=== PATIENT | female | born 1960 | race Caucasian/White ===

== ENCOUNTER 2017-10-01 12:35 | Outpatient (CLI) | payer BC ==
--- NOTE | 2017-10-01 16:04 | MRI ---
MRI RIGHT KNEE WITHOUT CONTRAST: HISTORY: M25.561 (knee pain). COMPARISON: Knee radiographs from 2016. FINDINGS: MEDIAL MENISCUS: High-grade radial oblique flap tear, posterior horn, medial meniscus, extending fro m the free edge to the intermediate zone and directed medially, near the root attachment. LATERAL MENISCUS: Intact. ACL/PCL/MCL/LCL: Intact. EXTENSOR MECHANISM: The quadriceps tendon, the patella, and the patella tendon are all intact. CARTILAGE: PATELLOFEMORAL COMPARTMENT: There are some high-grade cartilage fissures on the lateral trochlea. MEDIAL COMPARTMENT: High-grade cartilage fissuring along the central weight-bearing surface, medial femoral condyle, medial tibial plateau. LATERAL COMPARTMENT: Mild chondral fraying. SOFT TISSUES: There is a ganglion pseudocyst in the posterior central soft tissues, emanating from t he posterior joint capsule, likely sequela of the meniscal tear. IMPRESSION: 1. High-grade radial oblique tear, posterior horn, medial meniscus, extending from the free edge and then extending laterally into the posterior horn/root attachment, involving the intermediate and red zone. This is not a complete tear, with only 2 mm gutter extrusion. 2. Ganglion pseudocyst along the posterior horn, medial meniscus, seen through the capsule, into the posterior soft tissues. 3. Moderate-sized osteophyte formation, medial compartment, along with multifocal grade 3 chondromal acia. 4. 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 POS: TPC
== END 2017-10-01 12:36 | disposition home or self-care (01) ==
LOC: SCSMRI 12:35
PROVIDERS: ATTEND Orthopaedic Surgery
DX: S83.241A Other tear of medial meniscus, current injury, right knee, initial encounter (principal); M67.461 Ganglion, right knee; M25.761 Osteophyte, right knee; M22.41 Chondromalacia patellae, right knee

== ENCOUNTER 2017-10-20 16:24 | Outpatient (CLI) | payer BC ==
[2017-10-20 17:12] LABS: #Basophils 0.1 thou/uL (0.0-0.2); #Eosinphils 0.1 thou/uL (0.0-0.7); #Lymphocytes 2.1 thou/uL (1.20-3.40); #Monocytes 0.7 thou/uL (0.11-0.59); #Neutrophils 3.2 thou/uL (1.40-6.50); %Basophils 1.1 % (0.0-1.0); %Eosinophils 2.3 % (0.0-10.0); %Lymphocytes 33.9 % (21.0-51.0); %Monocytes 10.8 % (0.0-10.0); %Neutrophils 51.9 % (42.0-75.0); Hemoglobin 14.4 g/dL (12.0-16.0); Mean Corpuscular HGB CONC 32.4 g/dL (32.0-36.0); Mean Corpuscular Hemoglobin 31.6 pg (27.0-31.0); Mean Corpuscular Volume 97.5 fl (81.0-99.0); Mean Platelet Volume 8.1 fL (7.4-10.4); Platelet Count 213 thou/uL (130-400); RBC Distribution Width 13.1 % (11.5-14.5); Red Blood Cell (RBC) Count 4.55 mill/uL (4.20-5.40); White Blood Cell (WBC) Count 6.2 thou/uL (4.8-10.8)
[2017-10-20 17:40] LABS: Anion Gap 12 mmol/L (10-20); BUN (Urea Nitrogen) 19 mg/dL (9.8-20.1); Calc. Creatinine Clearance 0 mL/min (70-130); Calcium 9.7 mg/dL (7.8-10.44); Carbon Dioxide 28 mmol/L (22-29); Chloride 103 mmol/L (98-107); Estimated GFR-MDRD 64; Glucose 98 mg/dL (70-105); Potassium 4.4 mmol/L (3.5-5.1); Sodium 139 mmol/L (136-145)
== END 2017-10-20 16:25 | disposition home or self-care (01) ==
LOC: LABBT 16:24
PROVIDERS: ATTEND Orthopaedic Surgery
DX: Z01.818 Encounter for other preprocedural examination (principal); S83.206A Unspecified tear of unspecified meniscus, current injury, right knee, initial encounter
CPT/HCPCS: 80048; 85025; 93005; 93010

== ENCOUNTER 2017-10-22 06:11 | Day surgery (SDC) | payer BC ==
[2017-10-20 16:43] VITALS: BMI 37.8
[2017-10-22] MEDS ORDERED: Fentanyl 100 MCG/2 ML VIAL ONE ×2 (06:35→06:38)
[2017-10-22] MEDS ORDERED: Dexamethasone 4 mg/ml Vial ONE (06:35)
[2017-10-22] MEDS ORDERED: Midazolam HCl 2 mg/2 ml Vial ONE ×2 (06:35→06:38)
[2017-10-22] MEDS ORDERED: PROPOFOL 20 ML ONE (06:37)
[2017-10-22] MEDS ORDERED: CEFAZOLIN/Water 2 GM/20 ML SYRINGE ONE (06:57)
[2017-10-22] MEDS ORDERED: Meperidine HCl/PF 25 MG/ML VIAL ONE (09:00)
[2017-10-22] MEDS ORDERED: Ondansetron HCl/PF 4 MG/2 ML Vial ONE (09:01)
--- NOTE | 2017-10-22 09:59 | OP ---
DATE OF PROCEDURE: 10/22/2017 PREOPERATIVE DIAGNOSIS: Right knee posterior horn medial meniscus tear. POSTOPERATIVE DIAGNOSES: 1. Right knee posterior horn medial meniscus tear. 2. Bony loose body at the base of the ACL measuring greater than 1 cm in diameter. PROCEDURES PERFORMED: 1. Right knee arthroscopy with partial medial meniscectomy. 2. Removal of loose body, right knee. SURGEON: Doug Porter M.D. DENTURE PACKER: None. BLOOD LOSS: Minimal. COMPLICATIONS: None. ANESTHESIA: She did have general anesthetic as well as a local knee block. DISPOSITION: She went to recovery room in stable condition. INDICATIONS: A 57-year-old active female who had a meniscus tear noted on MRI scan and we tried to t reat this nonoperatively, but unfortunately, she has failed this and at this time she is presenting f or surgery. OPERATIVE PROCEDURE: After all appropriate consent forms were explained and signed, she was taken ba to the operating room and at this time was given general anesthetic. But once anesthesia was appr opriate, the tourniquet was placed on the right thigh and leg was placed in an arthroscopic leg holde r. It was then prepped and draped in the standard surgical fashion. The limb was exsanguinated and the tourniquet was taken to 300 mmHg. An inferolateral portal was established and scope was placed i nto the knee joint. A needle localization technique was then used to make a medial working portal. Diagnostic arthroscopy commenced in the notch. The ACL and PCL probed and found to be intact. There were some large osteophytes in the notch and I did take some of this down to prevent impingement ont o the ligamentous structures. The medial compartment was evaluated. There was some grade 2 chondrom alacia in the medial femoral condyle. No significant treatment was needed. The tibia overall was in pretty good condition. There was a large tear in the posterior horn of the medial meniscus and only the portion of the meniscus that was torn was removed leaving all remaining meniscal structure. Rem aining meniscus was in good condition. As we went back into the notch, we noted a large loose body a ttached at the base of the ACL. This was removed with a grasper measuring greater than a centimeter in diameter. Once this loose body is removed, we gently debrided around this area with the shaver. We then turned our attention to the lateral compartment. Femur, tibia, and lateral meniscus were pro bed and found to be intact. Gutters were swept through and no loose bodies were noted. There were c ircumferential osteophytes noted in the medial and lateral gutters. Patellofemoral joint showed some global grade II and III changes to the patella and the trochlea. Again, no treatment was needed. A t this time, scope was removed. Knee was drained. Portals are closed with simple nylon stitch. Bul ky sterile dressing was applied and the tourniquet let down. The patient at this time was awakened. She was taken to the recovery room in stable condition. All counts were correct at the end of the c ase. She received preoperative IV antibiotics.
[2017-10-22] MEDS ORDERED: PROPOFOL 200 MG/20 ML VIAL ONE (11:12)
[2017-10-22] MEDS ORDERED: Lidocaine 1% PF 5 ML VIAL ONE (11:12)
[2017-10-22] MEDS ORDERED: Bupivacaine HCl 0.5%/Epinephrine 1:200,000/PF 30 ml Vial ONE (12:53)
== END 2017-10-22 10:40 | disposition home or self-care (01) ==
LOC: SDC 06:11
PROVIDERS: ATTEND Orthopaedic Surgery
PROC: 0SBC4ZZ Excision of Right Knee Joint, Percutaneous Endoscopic Approach (ICD-10-PCS; principal; 2017-10-22)
DX: S83.241A Other tear of medial meniscus, current injury, right knee, initial encounter (principal); M17.11 Unilateral primary osteoarthritis, right knee; I10 Essential (primary) hypertension; Z88.5 Allergy status to narcotic agent; Z79.82 Long term (current) use of aspirin; Z79.899 Other long term (current) drug therapy
CPT/HCPCS: 96374; 96375; G8978-GP-CJ; G8979-GP-CJ; G8980-GP-CJ; J0670; J1100; J2001; J2175; J2250; J2405; J2704; J3010

== ENCOUNTER 2018-10-26 13:07 | Outpatient (CLI) | payer BC ==
--- NOTE | 2018-10-26 14:09 | MRI ---
MRI Lumbar Spine Noncontrast: HISTORY: Right lower extremity pain for one month. Pain is getting worse. COMPARISON: None FINDINGS: The visualized retroperitoneal structures demonstrate a normal appearance. Conus medullaris is normal in morphology and terminates at the L1-2 level. There is a transitional vertebra at the lumbosacral junction with partial sacralization of the right aspect of the L5 vertebral body. L1-2: There is a mild disc osteophyte complex resulting in slight effacement of the ventral aspect of the thecal sac. Mild facet degenerative changes are present. The neural foramina are patent. L2-3: There is a mild broad-based disc osteophyte complex eccentrically greater on the left. There is no significant narrowing of the central spinal canal. The right neural foramen is patent. There is mild left-sided neural foraminal narrowing. L3-4: There is grade 1 anterolisthesis of L3 on L4 measuring 4 mm. A mild disc osteophyte complex is present. There are prominent facet hypertrophic changes at this level with minimal ligamentous thickening. No significant central spinal canal or neural foraminal narrowing is appreciated. L4-5: There is grade 1 anterolisthesis of L4 on L5 measuring approximately 5 mm. There is loss of int ervertebral disc height. A mild broad-based disc osteophyte complex is present. Prominent facet hypertrophic changes are noted. There is no significant narrowing of the central spinal canal or neur al foramina. L5-S1: No disc bulge or disc herniation is seen. Central spinal canal and neural foramina are patent. IMPRESSION: Multilevel degenerative changes in the lumbar spine. There is grade 1 anterolisthesis of L3 on L4 and L4 on L5 which appears to be attributable to prominent facet degenerative changes at these levels. There is no significant narrowing of the central spinal canal or neural foramina at any level of the lumbar spine.
== END 2018-10-26 13:08 | disposition home or self-care (01) ==
LOC: SCSMRI 13:07
PROVIDERS: ATTEND Orthopaedic Surgery
DX: M47.26 Other spondylosis with radiculopathy, lumbar region (principal); M79.604 Pain in right leg; M43.16 Spondylolisthesis, lumbar region
CPT/HCPCS: 72148

== ENCOUNTER 2020-10-17 09:38 | Outpatient (CLI) | payer BC | END 2020-10-17 09:39 | disposition home or self-care (01) | LOC: SCSMRI 09:38 | PROVIDERS: ATTEND Orthopaedic Surgery Hand Surgery | DX: S63.591A Other specified sprain of right wrist, initial encounter (principal) ==

== ENCOUNTER 2021-03-21 09:28 | Outpatient (CLI) | payer BC ==
[2021-03-21 10:43] LABS: Bilirubin Neg (Negative); Blood, Urine Negative (Negative); Glucose, Urine (Dipstick) Normal (Negative); Ketone, Urine Negative (Negative); Leukocyte Negative (Negative); Nitrite Negative (Negative); Protein, Urine (Dipstick) Negative (Neg-Trace); Specific Gravity, Urine 1.005 (1.002-1.036); Urobilinogen Normal mg/dL (Less than 2)
[2021-03-21 10:53] LABS: Clarity Clear (Clear)
[2021-03-21 10:55] LABS: #Basophils 0.1 10x3/uL (0.0-0.2); #Eosinphils 0.1 10x3/uL (0.0-0.5); #Monocytes 0.6 10x3/uL (0.0-1.1); #Neutrophils 2.6 10x3/uL (1.5-8.4); %Basophils 1.1 % (0.0-2.0); %Eosinophils 1.9 % (0.0-6.0); %Lymphocytes 36.1 % (18.0-47.0); %Monocytes 11.9 % (0.0-10.0); %Neutrophils 48.8 % (40.0-75.0); Mean Corpuscular HGB CONC 33.3 g/dL (32.0-36.0); Mean Corpuscular Volume 99.1 fl (81.6-98.3); Mean Platelet Volume 10.9 fl (7.4-10.4); Platelet Count 194 10x3/uL (150-450); RBC Distribution Width 13.1 % (11.5-14.5); Red Blood Cell (RBC) Count 4.55 10x6/uL (3.90-5.03); White Blood Cell (WBC) Count 5.2 10x3/uL (3.5-10.5)
[2021-03-21 11:11] LABS: Anion Gap 13 mmol/L (10-20); BUN (Urea Nitrogen) 18 mg/dL (9.8-20.1); Calc. Creatinine Clearance 0 mL/min (70-130); Carbon Dioxide 30 mmol/L (23-31); Chloride 103 mmol/L (98-107); Glucose 105 mg/dL (80-115); Potassium 5.1 mmol/L (3.5-5.1); Sodium 141 mmol/L (136-145)
[2021-03-21 11:13] LABS: Prothrombin Time 10.7 sec (9.5-12.1)
[2021-03-21 17:29] LABS: SARS-CoV-2 PCR by NAA Not Detected (NotDetected)
== END 2021-03-21 09:29 | disposition home or self-care (01) ==
LOC: LABBT 09:28
PROVIDERS: ATTEND Orthopaedic Surgery
DX: Z01.818 Encounter for other preprocedural examination (principal); M65.311 Trigger thumb, right thumb; M17.11 Unilateral primary osteoarthritis, right knee; Z20.822 Contact with and (suspected) exposure to COVID-19
CPT/HCPCS: 71046; 80048; 81003; 85025; 85610; 86850; 86900; 86901; 87081; 93005; 93010; U0003; U0005

== ENCOUNTER 2021-03-26 07:16 | Inpatient (IN) | payer BC ==
[2021-03-21 10:43] LABS: Bilirubin Neg (Negative); Blood, Urine Negative (Negative); Glucose, Urine (Dipstick) Normal (Negative); Ketone, Urine Negative (Negative); Leukocyte Negative (Negative); Nitrite Negative (Negative); Protein, Urine (Dipstick) Negative (Neg-Trace); Specific Gravity, Urine 1.005 (1.002-1.036); Urobilinogen Normal mg/dL (Less than 2)
[2021-03-21 10:53] LABS: Clarity Clear (Clear)
[2021-03-21 10:55] LABS: #Basophils 0.1 10x3/uL (0.0-0.2); #Eosinphils 0.1 10x3/uL (0.0-0.5); #Monocytes 0.6 10x3/uL (0.0-1.1); #Neutrophils 2.6 10x3/uL (1.5-8.4); %Basophils 1.1 % (0.0-2.0); %Eosinophils 1.9 % (0.0-6.0); %Lymphocytes 36.1 % (18.0-47.0); %Monocytes 11.9 % (0.0-10.0); %Neutrophils 48.8 % (40.0-75.0); Mean Corpuscular HGB CONC 33.3 g/dL (32.0-36.0); Mean Corpuscular Volume 99.1 fl (81.6-98.3); Mean Platelet Volume 10.9 fl (7.4-10.4); Platelet Count 194 10x3/uL (150-450); RBC Distribution Width 13.1 % (11.5-14.5); Red Blood Cell (RBC) Count 4.55 10x6/uL (3.90-5.03); White Blood Cell (WBC) Count 5.2 10x3/uL (3.5-10.5)
[2021-03-21 11:11] LABS: Anion Gap 13 mmol/L (10-20); BUN (Urea Nitrogen) 18 mg/dL (9.8-20.1); Calc. Creatinine Clearance 0 mL/min (70-130); Carbon Dioxide 30 mmol/L (23-31); Chloride 103 mmol/L (98-107); Glucose 105 mg/dL (80-115); Potassium 5.1 mmol/L (3.5-5.1); Sodium 141 mmol/L (136-145)
[2021-03-21 11:13] LABS: Prothrombin Time 10.7 sec (9.5-12.1)
[2021-03-21 17:29] LABS: SARS-CoV-2 PCR by NAA Not Detected (NotDetected)
[2021-03-26] MEDS ORDERED: Tranexamic Acid 1,000 MG/10 ML VIAL ONE ×2 (07:29→12:25)
[2021-03-26] MEDS ORDERED: Sodium Chloride 0.9% 100 ML ONE (07:29)
[2021-03-26] MEDS ORDERED: Vancomycin 1.5 GRAM/300 ML BAG 1.5 GM in Premix Bag 1 BAG IVPB SCH (07:30)
[2021-03-26] MEDS ORDERED: CEFAZOLIN 2 GM in Premix Bag 1 BAG IVPB SCH (07:45)
[2021-03-26] MEDS ORDERED: Midazolam HCl 2 mg/2 ml Vial ONE ×2 (08:20→09:41)
[2021-03-26] MEDS ORDERED: Morphine 4 MG/ML VIAL ONE ×6 (08:21→13:23)
[2021-03-26] MEDS ORDERED: methylPREDNISolone Acetate 40 mg/ml Vial ONE (09:38)
[2021-03-26] MEDS ORDERED: Lidocaine 1% (PF) 30 ML VIAL ONE (09:38)
[2021-03-26] MEDS ORDERED: Bupivacaine PF 0.5% 30 ML VIAL ONE (09:38)
[2021-03-26] MEDS ORDERED: Fentanyl 100 MCG/2 ML VIAL ONE (09:41)
[2021-03-26] MEDS ORDERED: PROPOFOL 200 MG/20 ML VIAL ONE (09:51)
[2021-03-26] MEDS ORDERED: Lidocaine 1% PF 5 ML VIAL ONE (09:51)
[2021-03-26] MEDS ORDERED: Ondansetron PF 4 MG/2 ML Vial ONE (09:51)
[2021-03-26] MEDS ORDERED: Dexamethasone 20 MG/5 ML VIAL ONE (09:51)
[2021-03-26] MEDS ORDERED: Bupivacaine HCl 0.5%/Epinephrine 1:200,000/PF 30 ml Vial ONE (09:51)
[2021-03-26] MEDS ORDERED: Acetaminophen/Codeine 30-300mg Tablet PO PRN (10:00)
[2021-03-26] MEDS ORDERED: Ondansetron PF 4 MG/2 ML Vial IVP PRN ×2 (10:00→11:42)
[2021-03-26] MEDS ORDERED: Morphine 4 MG/ML VIAL SLOW IVP PRN (10:00)
[2021-03-26] MEDS ORDERED: Promethazine HCl 25 MG/ML VIAL IM PRN ×3 (10:00→11:42)
[2021-03-26] MEDS ORDERED: Ropivacaine 0.2% 550 ML 550 ML NERVE BLCK SCH (10:00)
[2021-03-26] MEDS ORDERED: Zolpidem Tartrate 5 MG TAB PO PRN ×2 (10:00→11:42)
[2021-03-26] MEDS ORDERED: Ondansetron HCl/PF 4 MG/2 ML Vial IVP PRN (11:37)
[2021-03-26] MEDS ORDERED: Promethazine HCl 25 MG/ML VIAL IVPB PRN (11:37)
[2021-03-26] MEDS ORDERED: HYDROmorphone 2 MG/ML VIAL SLOW IVP PRN (11:37)
[2021-03-26] MEDS ORDERED: Acetaminophen 325 MG TAB PO PRN (11:42)
[2021-03-26] MEDS ORDERED: diphenhydrAMINE 25 MG CAP PO PRN (11:42)
[2021-03-26] MEDS ORDERED: Tranexamic Acid 1,000 MG in Sodium Chloride 0.9% 100 ML IVPB SCH (11:45)
[2021-03-26] MEDS ORDERED: Non-Formulary Medication 1 EACH PO PRN (12:32)
[2021-03-26] MEDS ORDERED: PACU-Morphine 4MG/ML VIAL SLOW IVP PRN (12:45)
[2021-03-26] MEDS ORDERED: Morphine Sulfate 2 MG/ML SYRINGE SLOW IVP PRN (12:45)
[2021-03-26] MEDS: Gabapentin 300 MG CAP PO SCH ×2 (14:38→21:35)
[2021-03-26] MEDS: Ketorolac Tromethamine 30 MG/ML VIAL IVP SCH ×2 (14:39→21:37)
[2021-03-26] MEDS: Sodium Chloride 0.9% 1,000 ML IV SCH ×2 (14:40→22:58)
[2021-03-26 16:23] VITALS: BMI 33.3
[2021-03-26] MEDS ORDERED: ceFAZolin Sodium/D5W 2 GM in Premix Bag 1 BAG IVPB SCH (18:00)
[2021-03-26] MEDS: CEFAZOLIN 2 GM in Sodium Chloride 0.9% 100 ML IVPB SCH (18:54)
[2021-03-26] MEDS ORDERED: Aspirin 81 mg Enteric Coated Tablet PO SCH (21:00)
[2021-03-26] MEDS ORDERED: Vancomycin HCl 1.5 GM in Sodium Chloride 0.9% 250 ML 300 ML IVPB SCH (21:00)
[2021-03-26] MEDS ORDERED: Non-Formulary Item 1 EACH (Cetirizine Hcl [Zyrtec] 10 MG Capsule) PO SCH (21:00)
[2021-03-26] MEDS ORDERED: Non-Formulary Item 1 EACH (Multivitamin [Daily Multiple Vitamin] 1 EACH Tablet) PO SCH (21:00)
[2021-03-26] MEDS: Aspirin 81 mg Enteric Coated Tablet PO SCH (21:35)
[2021-03-26] MEDS: Calcium Carbonate 600 MG + Vit D TAB PO SCH (21:35)
[2021-03-26] MEDS: Lisinopril 5 MG TAB PO SCH (21:36)
[2021-03-26] MEDS: Lorazepam 0.5 MG TAB PO SCH ×2 (21:39→21:49)
[2021-03-27] MEDS: CEFAZOLIN 2 GM in Sodium Chloride 0.9% 100 ML IVPB SCH (04:06)
[2021-03-27] MEDS: Acetaminophen/Codeine 30-300mg Tablet PO PRN ×2 (04:08→13:58)
[2021-03-27] MEDS: Sodium Chloride 0.9% 1,000 ML IV SCH ×3 (05:11→23:36)
[2021-03-27] MEDS: Ketorolac Tromethamine 30 MG/ML VIAL IVP SCH ×3 (06:20→21:39)
[2021-03-27 06:43] LABS: Mean Corpuscular HGB CONC 34.6 g/dL (32.0-36.0); Mean Platelet Volume 8.3 fL (7.4-10.4); Platelet Count 157 thou/uL (130-400); RBC Distribution Width 12.1 % (11.5-14.5); Red Blood Cell (RBC) Count 3.44 mill/uL (4.20-5.40); White Blood Cell (WBC) Count 11.9 thou/uL (4.8-10.8)
[2021-03-27] MEDS: Multivitamin W/ Minerals 1 TAB PO SCH (08:34)
[2021-03-27] MEDS: Senokot S 8.6-50 MG TAB PO SCH ×2 (08:34→19:57)
[2021-03-27] MEDS: Aspirin 81 mg Enteric Coated Tablet PO SCH ×2 (08:34→19:56)
[2021-03-27] MEDS: Gabapentin 300 MG CAP PO SCH ×3 (08:34→19:57)
[2021-03-27] MEDS: Calcium Carbonate 600 MG + Vit D TAB PO SCH ×2 (08:35→19:56)
[2021-03-27] MEDS: Ferrous Gluconate 324 MG TAB PO SCH ×2 (08:35→19:57)
[2021-03-27] MEDS: Loratadine 10 MG TAB PO SCH (08:35)
[2021-03-27] MEDS: hydrOXYzine 10 MG TAB PO PRN ×2 (15:58→19:58)
[2021-03-27] MEDS: traMADol HCl 50 MG TAB PO PRN (19:56)
[2021-03-27] MEDS: Lorazepam 0.5 MG TAB PO SCH (19:58)
[2021-03-27] MEDS: Lisinopril 5 MG TAB PO SCH (19:58)
[2021-03-28] MEDS: Acetaminophen/Codeine 30-300mg Tablet PO PRN (02:51)
[2021-03-28] MEDS: hydrOXYzine 10 MG TAB PO PRN ×2 (02:52→08:59)
[2021-03-28] MEDS: Ketorolac Tromethamine 30 MG/ML VIAL IVP SCH ×2 (05:59→15:07)
[2021-03-28 06:15] LABS: Hemoglobin 11.5 g/dL (12.0-16.0); Mean Corpuscular HGB CONC 33.8 g/dL (32.0-36.0); Mean Corpuscular Hemoglobin 34.6 pg (27.0-31.0); Mean Platelet Volume 8.2 fL (7.4-10.4); Platelet Count 150 thou/uL (130-400); RBC Distribution Width 12.4 % (11.5-14.5); Red Blood Cell (RBC) Count 3.33 mill/uL (4.20-5.40); White Blood Cell (WBC) Count 9.2 thou/uL (4.8-10.8)
[2021-03-28] MEDS: traMADol HCl 50 MG TAB PO PRN (09:00)
[2021-03-28] MEDS: Calcium Carbonate 600 MG + Vit D TAB PO SCH (09:01)
[2021-03-28] MEDS: Gabapentin 300 MG CAP PO SCH ×2 (09:01→15:06)
[2021-03-28] MEDS: Loratadine 10 MG TAB PO SCH (09:02)
[2021-03-28] MEDS: Multivitamin W/ Minerals 1 TAB PO SCH (09:02)
[2021-03-28] MEDS: Senokot S 8.6-50 MG TAB PO SCH (09:02)
[2021-03-28] MEDS: Aspirin 81 mg Enteric Coated Tablet PO SCH (09:02)
[2021-03-28] MEDS: Ferrous Gluconate 324 MG TAB PO SCH (09:02)
[2021-03-28 11:37] VITALS: BP 148/71; TEMP 98.8
[2021-03-28] MEDS: Sodium Chloride 0.9% 1,000 ML IV SCH (14:42)
== END 2021-03-28 16:43 | disposition home or self-care (01) | DRG 470 ==
LOC: SDC 07:16 → SJJU 11:42
PROVIDERS: ADMIT Orthopaedic Surgery; ATTEND Orthopaedic Surgery
PROC: 0SRC0J9 Replacement of Right Knee Joint with Synthetic Substitute, Cemented, Open Approach (ICD-10-PCS; principal; 2021-03-26)
PROC: 3E0233Z Introduction of Anti-inflammatory into Muscle, Percutaneous Approach (ICD-10-PCS; 2021-03-26)
DX: M17.11 Unilateral primary osteoarthritis, right knee (principal); M65.311 Trigger thumb, right thumb; Z20.822 Contact with and (suspected) exposure to COVID-19; I10 Essential (primary) hypertension; J30.2 Other seasonal allergic rhinitis; E66.9 Obesity, unspecified; G47.33 Obstructive sleep apnea (adult) (pediatric); Z90.710 Acquired absence of both cervix and uterus; Z68.33 Body mass index [BMI] 33.0-33.9, adult; Z99.89 Dependence on other enabling machines and devices; Z79.899 Other long term (current) drug therapy; Z88.5 Allergy status to narcotic agent; Z88.8 Allergy status to other drugs, medicaments and biological substances
CPT/HCPCS: 36415; 80048; 81003; 85025; 85027; 85610; 86850; 86900; 86901; 87081; A4306; C1713; C1776; J0690; J1100; J1885; J2001; J2250; J2270; J2405; J2704; J2795; J2920; J3010; J3370; J3490; J7050; S0020; U0003; U0005

== ENCOUNTER 2021-10-04 10:47 | Outpatient (CLI) | payer BC ==
[2021-10-04 11:39] LABS: #Eosinphils 0.1 10x3/uL (0.0-0.5); #Monocytes 0.6 10x3/uL (0.0-1.1); #Neutrophils 3.2 10x3/uL (1.5-8.4); %Basophils 0.7 % (0.0-2.0); %Eosinophils 2.3 % (0.0-6.0); %Lymphocytes 31.7 % (18.0-47.0); %Monocytes 9.6 % (0.0-10.0); %Neutrophils 55.4 % (40.0-75.0); Hemoglobin 14.8 g/dL (12.0-15.5); Mean Corpuscular HGB CONC 33.5 g/dL (32.0-36.0); Mean Corpuscular Hemoglobin 32.7 pg (27.0-33.0); Mean Corpuscular Volume 97.8 fl (81.6-98.3); Mean Platelet Volume 10.5 fl (7.4-10.4); Platelet Count 225 10x3/uL (150-450); RBC Distribution Width 14.1 % (11.5-14.5); Red Blood Cell (RBC) Count 4.52 10x6/uL (3.90-5.03); White Blood Cell (WBC) Count 5.8 10x3/uL (3.5-10.5)
[2021-10-04 12:03] LABS: Anion Gap 16 mmol/L (10-20); BUN (Urea Nitrogen) 17 mg/dL (9.8-20.1); Calc. Creatinine Clearance 0 mL/min (70-130); Calcium 10.5 mg/dL (7.8-10.44); Carbon Dioxide 29 mmol/L (23-31); Chloride 101 mmol/L (98-107); Glucose 93 mg/dL (80-115); Potassium 4.4 mmol/L (3.5-5.1); Sodium 142 mmol/L (136-145)
[2021-10-04 21:33] LABS: SARS-CoV-2 PCR by NAA Not Detected (NotDetected)
== END 2021-10-04 10:48 | disposition home or self-care (01) ==
LOC: LABBT 10:47
PROVIDERS: ATTEND Orthopaedic Surgery Hand Surgery
DX: Z01.818 Encounter for other preprocedural examination (principal); M19.031 Primary osteoarthritis, right wrist; Z20.822 Contact with and (suspected) exposure to COVID-19
CPT/HCPCS: 80048; 85025; 93005; 93010; U0003; U0005

== ENCOUNTER 2021-10-09 06:34 | Day surgery (SDC) | payer BC ==
[2021-10-04 10:44] VITALS: BMI 36.3
[2021-10-09] MEDS ORDERED: Sodium Chloride 0.9% 100 ML ONE (09:43)
[2021-10-09] MEDS ORDERED: CEFAZOLIN 2 GM VIAL ONE (09:43)
[2021-10-09] MEDS ORDERED: PROPOFOL 200 MG/20 ML VIAL ONE (09:56)
[2021-10-09] MEDS ORDERED: Lidocaine 1% PF 5 ML VIAL ONE (09:56)
[2021-10-09] MEDS ORDERED: Ketorolac Tromethamine 30 MG/ML VIAL ONE (10:38)
== END 2021-10-09 11:08 | disposition home or self-care (01) ==
LOC: SDC 06:34
PROVIDERS: ATTEND Orthopaedic Surgery Hand Surgery
PROC: 3E0U33Z Introduction of Anti-inflammatory into Joints, Percutaneous Approach (ICD-10-PCS; principal; 2021-10-09)
DX: M19.031 Primary osteoarthritis, right wrist (principal); M77.8 Other enthesopathies, not elsewhere classified; I10 Essential (primary) hypertension; G47.30 Sleep apnea, unspecified; Z79.82 Long term (current) use of aspirin; Z79.899 Other long term (current) drug therapy; Z88.5 Allergy status to narcotic agent
CPT/HCPCS: 76000; J1885; J2704; J3490

== ENCOUNTER 2022-01-01 15:38 | Outpatient (CLI) | payer BC ==
[2022-01-01 16:48] LABS: #Eosinphils 0.2 10x3/uL (0.0-0.5); #Monocytes 0.6 10x3/uL (0.0-1.1); %Basophils 0.5 % (0.0-2.0); %Lymphocytes 36.1 % (18.0-47.0); %Monocytes 9.6 % (0.0-10.0); %Neutrophils 50.6 % (40.0-75.0); Hemoglobin 14.8 g/dL (12.0-15.5); Mean Corpuscular Volume 97.1 fl (81.6-98.3); Mean Platelet Volume 10.6 fl (7.4-10.4); Platelet Count 206 10x3/uL (150-450); RBC Distribution Width 12.7 % (11.5-14.5); Red Blood Cell (RBC) Count 4.48 10x6/uL (3.90-5.03); White Blood Cell (WBC) Count 5.9 10x3/uL (3.5-10.5)
== END 2022-01-01 15:39 | disposition home or self-care (01) ==
LOC: LABBT 15:38
PROVIDERS: ATTEND Orthopaedic Surgery Hand Surgery
DX: Z01.812 Encounter for preprocedural laboratory examination (principal); M65.311 Trigger thumb, right thumb; Z20.822 Contact with and (suspected) exposure to COVID-19
CPT/HCPCS: 85025; 87811